=== PATIENT | female | born 1980 | race Caucasian/White ===

== ENCOUNTER 2017-04-30 17:44 | Emergency (ER) | payer MEDICAID ==
[~2017-04-30] VITALS: Ht 157.5 cm; Wt 87.5 kg
[2017-04-30 18:41] VITALS: BP 151/91
--- NOTE | 2017-04-30 21:12 | NUR ---
PT TAKEN TO OF
--- NOTE | 2017-04-30 21:16 | NUR ---
36Y F PT PRESENTS TO ER W/C/O LEFT KNEE PAIN X2 WEEKS. PT DENIES ANY MEDICAL HX OR TRAUMA TO THE AREA. . PT DENIES N/V/D; SKIN IS PINK/WARM/DRY; AAOX4 WITH EVEN AND STEADY GAIT; LUNGS CLEAR BL; HR EVEN AND REGULAR; PT DENIES ANY FEVER, CP, SOB, OR COUGH AT THIS TIME; PATIENT STATES PAIN OF 8/10 AT THIS TIME; VSS; PATIENT POSITIONED FOR COMFORT; HOB ELEVATED; BEDRAILS UP X2; BED DOWN. ER MD MADE AWARE OF PT STATUS.
[2017-04-30] MEDS ORDERED: LIDOCAINE/PRILOCAINE 2.5% 30 GM TUBE TP ONE (21:22)
[2017-04-30] MEDS ORDERED: LIDOCAINE 1% ED 50 ML ONE (21:23)
--- NOTE | 2017-04-30 21:39 | NUR ---
Dr. Ceballos evaluating patient
[2017-04-30] MEDS ORDERED: IBUPROFEN 800 MG TAB PO ONE (21:45)
[2017-04-30 22:00] VITALS: BP 137/82
== END 2017-04-30 22:01 | disposition home or self-care (01) ==
LOC: MED 17:44
DX: S83.92XA Sprain of unspecified site of left knee, initial encounter (principal); X58.XXXA Exposure to other specified factors, initial encounter; Y93.89 Activity, other specified; Y92.89 Other specified places as the place of occurrence of the external cause; Y99.8 Other external cause status
CPT/HCPCS: 73562; 99284; J2001

== ENCOUNTER 2018-10-21 18:40 | Emergency (ER) | payer MEDICAID ==
[~2018-10-21] VITALS: Ht 157.5 cm; Wt 66.3 kg
[2018-10-21 18:51] VITALS: BP 151/100
--- NOTE | 2018-10-21 18:52 | NUR ---
PT AMBULATED TO ER BED 08
--- NOTE | 2018-10-21 18:59 | NUR ---
38.F BIB SELF C/O FACIAL RASH SINCE YESTERDAY WITH ITCHINESS; DENIES CP OR SOB. ALSO C/O COUGH X 4 DAYS; TOOK ROBITUSSIN FOR COUGHING. DENIES N/V/D. AAOX4 WITH EVEN AND STEADY GAIT; LUNGS CLEAR BL. PT DENIES ANY FEVER, CP, SOB, OR COUGH AT THIS TIME; PATIENT STATES PAIN OF 0/10 AT THIS TIME.PATIENT POSITIONED FOR COMFORT; HOB ELEVATED; BEDRAILS UP X2; BED DOWN. ER MD MADE AWARE OF PT STATUS.
--- NOTE | 2018-10-21 19:10 | NUR ---
Pt report given to ANETA LIGHT. Transfer of care at this time.
--- NOTE | 2018-10-21 19:21 | NUR ---
GOT REPORT NADEGE PIERCE. PT AAO X4, GCS 15, RESPIATIONS EVEN AND UNLABORED, BL LUNG CLEAR, AIRWAY INTACT. SKIN WARM/PINK/DRY, +PMSC. GENRELAIZED RASH NOTED. VSS, NO ACUTE DISTRESS AT THIS TIME. WILL CONTINUE TO MONITOR
--- NOTE | 2018-10-21 19:22 | NUR ---
Dr. Sanchez evaluating patient at bedside.
[2018-10-21 19:48] VITALS: BP 164/93
--- NOTE | 2018-10-21 19:48 | NUR ---
Patient discharged with v/s stable. Written and verbal after care instructions given and explained. Patient alert, oriented and verbalized understanding of instructions. Ambulatory with steady gait. All questions addressed prior to discharge. ID band removed. Patient advised to follow up with PMD. Rx of PREDNISONE 50 MG, BENEDRYL 25 MG given. Patient educated on indication of medication including possible reaction and side effects. Opportunity to ask questions provided and answered.
== END 2018-10-21 19:48 | disposition home or self-care (01) ==
LOC: MED 18:40
DX: R21 Rash and other nonspecific skin eruption (principal)
CPT/HCPCS: 99283

== ENCOUNTER 2023-04-05 17:15 | Inpatient (IN) | payer MEDICAID ==
[~2023-04-05] VITALS: Ht 157.5 cm; Wt 84.9 kg
[2023-04-05 17:23] VITALS: BP 214/103
[2023-04-05 17:47] LABS: BASOPHILS % (AUTO) 0.2 % (0.0-2.0); EOSINOPHILS # (AUTO) 0.2 K/uL (0-0.4); EOSINOPHILS % (AUTO) 1.3 % (0.0-4.0); HEMATOCRIT 36.8 % (36-48); HEMOGLOBIN 12.7 g/dL (12.0-16.0); LYMPHOCYTES # (AUTO) 2.7 K/uL (2.5-16.5); LYMPHOCYTES % (AUTO) 21.6 % (20.5-51.1); MEAN CORPUSCULAR HEMOGLOBIN 31 pg (27-31); MEAN CORPUSCULAR HGB CONC 35 g/dL (33-37); MEAN CORPUSCULAR VOLUME 88.8 fL (80-94); MONOCYTES # (AUTO) 0.9 K/uL (0.8-1.0); MONOCYTES % (AUTO) 7.3 % (1.7-9.3); NEUTROPHILS # (AUTO) 8.7 K/uL (1.8-7.7); NEUTROPHILS % (AUTO) 69.6 % (42.2-75.2); PLATELET COUNT (AUTO) 224 K/uL (140-450); RED BLOOD CELL COUNT(AUTO) 4.14 MIL/uL (4.20-5.40); RED CELL DISTRIBUTION WIDTH 13.3 % (11.6-13.7); WHITE BLOOD COUNT (AUTO) 12.5 K/uL (4.8-10.8)
[2023-04-05 18:01] LABS: PROTHROMBIN TIME 11.2 secs (10.8-13.4)
[2023-04-05 18:06] LABS: ALBUMIN 3.9 g/dL (3.4-5.0); ANION GAP 12.1 (8-16); ASPARTATE AMINOTRANSFERASE 19 U/L (15-37); CARBON DIOXIDE 25.8 mmol/L (21-32); CHLORIDE 102 mmol/L (98-107); CREATININE 0.8 mg/dL (0.6-1.3); GFR ARICAN-AMERICAN 101 mL/min (>90); GLUCOSE 104 mg/dL (74-106); SODIUM SERUM 137 mmol/L (136-145); TOTAL BILIRUBIN 0.6 mg/dL (0.0-1.0); UREA NITROGEN, BLOOD 9 mg/dL (7-18)
[2023-04-05 18:10] LABS: POTASSIUM 2.9 mmol/L (3.5-5.1)
[2023-04-05] MEDS ORDERED: NACL 0.9% 1,000 ML IV ONE (19:00)
[2023-04-05] MEDS ORDERED: KCL 20 MEQ IN 100 mL PREMIX 200 ML IV ONE (19:00)
[2023-04-05 19:25] LABS: APPEARANCE,URINE CLEAR (CLEAR); BILIRUBIN,URINE NEGATIVE (NEGATIVE); BLOOD, URINE 3+ (NEGATIVE); COLOR,URINE YELLOW (YELLOW); LEUKOCYTE ESTERASE ,URINE NEGATIVE (NEGATIVE); NITRITE, URINE NEGATIVE (NEGATIVE); UGLUCOSE NEGATIVE (NEGATIVE)
--- NOTE | 2023-04-05 19:30 | NUR ---
assumed care for pt. A&Ox1, pt is verbal but does not make sense. family is bedside, non ambulatory at the [facility]. awaiting admission
--- NOTE | 2023-04-05 19:33 | NUR ---
Pt failed swallow screen.
[2023-04-05 19:37] LABS: BARBITURATE, URINE NEGATIVE ng/ml (NEG <=200); BENZODIAZEPINE, URINE NEGATIVE ng/mL (NEG <=200); CANNABINOID, URINE NEGATIVE ng/mL (NEG <=50); COCAINE, URINE NEGATIVE ng/mL (NEG <=300); OPIATE, URINE NEGATIVE ng/mL (NEG <=2000); PHENCYCLIDINE SCREEN,URINE NEGATIVE ng/mL (NEG <=25)
--- NOTE | 2023-04-05 19:45 | NUR ---
pt care done and purewick applied. pt repostioned for comfort
--- NOTE | 2023-04-05 19:45 | NUR ---
pt was able to verbalize she did not feel right in est[place], after some time pt's speech progressivley became worse. pt understands commands and is able to point at things for assistance.
--- NOTE | 2023-04-05 21:35 | NUR ---
pt care done, pt repostioned for comfort
--- NOTE | 2023-04-05 22:40 | NUR ---
pt care done and repostioned for comfort. awaiting admission. son bedside
--- NOTE | 2023-04-05 22:40 | NUR ---
pt became uncontrollably crying and screaming. son bedside. IV was found bedside upon rounds.
[2023-04-05] MEDS: hydrALAZINE 20 MG/ML VIAL IVP PRN (23:04)
[2023-04-05] MEDS: LORazepam 2 MG/ML VIAL IVP PRN (23:15)
--- NOTE | 2023-04-06 02:18 | NUR ---
pt continuing to scream and yell while moving around in bed
--- NOTE | 2023-04-06 04:22 | NUR ---
pt had a period of agitation, appears that chucks were making pt uncomfortable. once removed pt was able to rest.
--- NOTE | 2023-04-06 04:23 | NUR ---
Mart silva in [facility] - 04/06/23 at 0425 by PATRICIA pt continuing to yell and scream, moving around in bed. awaiting admission
--- NOTE | 2023-04-06 06:06 | NUR ---
lab at bedside
[2023-04-06 06:41] LABS: BASOPHILS # (AUTO) 0.1 K/uL (0.00-0.22); BASOPHILS % (AUTO) 0.9 % (0.0-2.0); EOSINOPHILS # (AUTO) 0.1 K/uL (0-0.4); EOSINOPHILS % (AUTO) 0.6 % (0.0-4.0); HEMATOCRIT 34.7 % (36-48); HEMOGLOBIN 12.4 g/dL (12.0-16.0); LYMPHOCYTES # (AUTO) 1.4 K/uL (2.5-16.5); LYMPHOCYTES % (AUTO) 11.9 % (20.5-51.1); MEAN CORPUSCULAR HEMOGLOBIN 31 pg (27-31); MEAN CORPUSCULAR HGB CONC 36 g/dL (33-37); MEAN CORPUSCULAR VOLUME 86.7 fL (80-94); MONOCYTES # (AUTO) 0.7 K/uL (0.8-1.0); MONOCYTES % (AUTO) 6.1 % (1.7-9.3); NEUTROPHILS # (AUTO) 9.3 K/uL (1.8-7.7); NEUTROPHILS % (AUTO) 80.5 % (42.2-75.2); PLATELET COUNT (AUTO) 213 K/uL (140-450); RED BLOOD CELL COUNT(AUTO) 4.01 MIL/uL (4.20-5.40); RED CELL DISTRIBUTION WIDTH 13.5 % (11.6-13.7); WHITE BLOOD COUNT (AUTO) 11.6 K/uL (4.8-10.8)
[2023-04-06 06:57] LABS: ANION GAP 11.4 (8-16); CARBON DIOXIDE 24.8 mmol/L (21-32); CREATININE 0.6 mg/dL (0.6-1.3); POTASSIUM 3.2 mmol/L (3.5-5.1)
--- NOTE | 2023-04-06 07:05 | NUR ---
pt care done, pt repostioned for comfort. pt awaiting for admission.
[2023-04-06] MEDS: DEXT 5% /NACL 0.9% 1,000 ML IV SCH ×2 (08:00→16:00)
--- NOTE | 2023-04-06 08:10 | NUR ---
Patient will be admitted to care of DR SHERMAN. Admited to TELE. Will go to room 110A. Belongings list completed. Report to NADEGE BOWERS.
[2023-04-06 08:20] VITALS: BP 168/72
--- NOTE | 2023-04-06 08:40 | NUR ---
PATIENT'S BP 168/72, NOTIFIED MD IF WANTED PERMISSIVE HTN, PER MD OKAY TO GIVE HYDRALAZINE
[2023-04-06] MEDS: ATORVASTATIN 20 MG TAB PO SCH (09:00)
[2023-04-06] MEDS: ASPIRIN 81 MG TAB.CHEW PO SCH (09:00)
[2023-04-06 10:02] VITALS: BP 156/107
--- NOTE | 2023-04-06 10:23 | NUR ---
COMPLETED MRI CHECKLIST WITH SON MATTY [phone]
[2023-04-06] MEDS: hydrALAZINE 20 MG/ML VIAL IVP PRN (10:50)
--- NOTE | 2023-04-06 10:51 | NUR ---
PT. GIVEN MED CUP OF WATER UNABLE TO SWALLOW, NOT SAFE TO GIVE MEDICATIONS, MEDICAL STUDENT MADE AWARE WELL LOW POTASSIUM
--- NOTE | 2023-04-06 11:59 | NUR ---
DC PLANNING A 42 Y.O.FEMALE FEMALE PATIENT ADMITTED IN TELEMETRY UNIT FOR EVAL OF ACUTE ONSET OF CONFUSION WITH RIGHT FACIAL DROOP .PATIENT SPEAKS INCOHERENTLY AND NOT FOLLOWING COMMANDS.CT OF BRAIN SHOWS NO BLEED BUT WITH LATE/ACUTE EARLY SUBACUTE ISCHEMIC INFARCT INVOLVING LEFT POSTERIOR FRONTAL AND LEFT TEMPORAL LOBES.CT ANGIO NORMAL.CTA NECK NEGATIVE.NEURO FOLLOWING.FOR MRI AT [facility] RADIOLOGY DEPT.RESCUE WORKER TIME BY [facility] AT 12:15PM.FLOOR NURSE AND FAMILY INFORMED.DC PLAN - FOR TRANSFER TO HIGHER LEVEL OF CARE.[place] [facility].CM TO FOLLOW. Addendum: 04/06/23 at 1507 by BURT RANDOLPH CM DC PLANNING LATE ENTRY MESSAGE LEFT TO [facility] NEURO CLINICAL COORDINATOR REGARDING REQUEST FOR TRANSFER TO HIGHER LEVEL OF CARE. AWAITING RESPONSE.[facility] TO BE CALLED WELL FOR FOLLOW UP.PATIENT LEFT FOR [facility]. FOR MRI.PATIENT IS APHASIC AND WITH LEFT SIDED WEAKNESS.CM TO FOLLOW. Addendum: 04/07/23 at 1231 by BURT RANDOLPH CM DC PLANNING SPOKE WITH RM AT TRANSFER CENTER AT [facility] 04/06.[facility] ASKING FOR SPECIFIC REASON WHY PATIENT NEEDS HIGHER LEVEL OF CARE .PATIENT ALREADY PASSED THE STROKE WINDOW.MRI RESULT SHOWS LARGE AORTIC INFARCT WITH LEFT MCA DISTRIBUTION AND LEFT PARIETAL T1 SIGNAL.ABNORMALITIES.FOR PT,OT, ST. AND SWALLOWING EVAL.CM TO FOLLOW. Addendum: 04/08/23 at 1230 by BURT RANDOLPH CM DC PLANNING PT,SWALLOWING EVAL DONE .PT RECOMMENDING SNF.PATIENT ON PUREE DIET.STILL APHASIC AND WITH RIGHT SIDED WEAKNESS.PATIENT NEEDS FELTMAKER REHAB.CLINICALS FAXED TO [facility] WILL UPDATE FAMILY OF PLAN.CM TO FOLLOW.. Addendum: 04/09/23 at 1043 by BURT RANDOLPH CM DC PLANNING HEALTHCARE ADMINISTRATION INTERN WAS CALLED THIS AM AND PATIENT WAS TRANSFERRED TO ICU AFTER CT OF THE BRAIN WAS DONE.CODED IN ICU AND WAS INTUBATED.SPOKE WITH SILKE AT [facility] AND UPDATED OF PATIENT'S STATUS.UNABLE TO ACCEPT PATIENT EVEN BEFORE THE CODE.PATIENT NEEDS LOWER LEVEL OF CARE AND CANNOT TOLERATE 3 HOUR DAILY INTENSIVE REHAB. CM TO FOLLOW. Addendum: 04/09/23 at 1417 by BURT RANDOLPH CM DC PLANNING -LATE ENTRY HIGHER LEVEL OF CARE REQUESTED BY .CLINICALS FAXED TO [facility], [facility] ACCEPTED THE PATIENT PENDING LETTER OF AGREEMENT.SPOKE WITH YANNICK AT [facility]HOUSE SUP TO FOLLOW AFTER 4;30PM.CM TO FOLLOW. Addendum: 04/09/23 at 1525 by BURT RANDOLPH CM LATE ENTRY LETTER OF AGREEMENT FAXED TO TRANSFER CENTER AT [facility] C/O YANNICK GARCIA RN.SPOKE TO AND SON MATTY AND UPDATE FOR TRANSFER DISCUSSED. Addendum: 04/09/23 at 1552 by BURT RANDOLPH CM LATE ENTRY REQUEST FOR HIGHER LEVEL OF CARE CANCELLED BY .[facility] NOTIFIED.PATIENT WILL NOT BENEFIT FROM SURGICAL INTERVENTION PER .FOR POSSIBLE TRACH AND PEG PLACEMENT PER NEURO .SOY TO FOLLOW.
[2023-04-06 12:00] VITALS: BP 153/86
[2023-04-06] MEDS ORDERED: POTASSIUM CHL 10 MEQ/D5-1/2NS 1,000 ML IV SCH (12:00)
[2023-04-06] MEDS ORDERED: KCL 20 MEQ IN 100 mL PREMIX 100 ML IV SCH (12:35)
--- NOTE | 2023-04-06 12:39 | NUR ---
DC PLANNING ASSESSMENT COMPLETE PLEASE REFER TO ASSESSMENT FOR ADDITIONAL DETAILS PT CURRENTLY HAS AN ORDER TO BE TRANSFERRED TO [facility] FOR MRI OF THE BRAIN WITHOUT CONTRAST. PT ALSO HAS AN ORDER FOR HLOC, CM CURRENTLY WORKING ON IDENTIFYING HLOC PLACEMENT, FAMILY AWARE. Addendum: 04/06/23 at 1242 by Thomas Zaidi SS Amended: Links added.
[2023-04-06] MEDS ORDERED: MORPHINE SULFATE 4 MG/ML SYR ONE (13:16)
[2023-04-06] MEDS: MORPHINE SULFATE 4 MG/ML SYR IVP SCH ×2 (13:18→14:45)
--- NOTE | 2023-04-06 13:34 | NUR ---
PT. SCREAMING IN PAIN UNABLE TO IDENTIFY SOURCE, RECEIVED ORDERS FROM MD STATES TO GIVE 4MG OF MORPHINE X1 AND 3MG PRN Q6H AFTER. ADMINISTERED 4MG OF MORPHINE, PT. NOTED TO HAVE INGROWN TOENAIL TO RT. GREAT TOE, TOE IS RED AND SWOLLEN MEDICAL STUDENT AT BEDSIDE MADE AWARE. PT. PICKED UP BY ANNELIESE TO GO TO [place] FOR MRI
--- NOTE | 2023-04-06 14:23 | NUR ---
PATIENT HAS BEEN SCREENED AND CATEGORIZED MODERATE NUTRITION RISK. PATIENT WILL BE SEEN WITHIN 3-5 DAYS OF ADMISSION. REVIEWED BY SYDNI HERNANDEZ RD
--- NOTE | 2023-04-06 15:16 | NUR ---
PT. ARRIVED BACK FROM MRI IN STABLE CONDITION, CURRENTLY RESTING
[2023-04-06 16:00] VITALS: BP 144/79
[2023-04-06] MEDS: MORPHINE SULFATE 2 MG/ML SYR IVP PRN (16:59)
[2023-04-06 20:00] VITALS: BP 144/87
--- NOTE | 2023-04-06 20:00 | NUR ---
PM NURSING NARRATIVE (OPENING) HAND-OFF REPORT RECEIVED FROM ROBINSON LIGHT WITH BEDSIDE ROUNDS AND INTRODUCTION OF PM NURSE @192. PT RECEIVED AWAKE IN BED WATCHING TV. DX: AFIB WITH RVR/PNEUMONIA. REPORTED HEART RATE 100-120'S WITH DIGOXIN IVP GIVEN AND HEART RATE LOWERED IN THE 90'S. BILATERAL LOWER EXTREMITIES 1+ EDEMA. LASIX GIVEN. PT STEADY AND AMBULATORY FOR BRP. NS @60ML/HR. TO RFA. SITE BENIGN. PRESENTLY ON ROOM AIR. NO SOB. PT STATED "...GOING HOME TOMORROW." CONTINUE TO MONITOR FOR CHANGES, MEDS ORDERED AND COMFORT MEASURES. BED IN LOWEST POSTION WITH WHEELS LOCKED. Addendum: 04/07/23 at 0932 by Agency Nurse 20, RN RN WRONG CHART. DISREGARD ENTIRE ENTRY.
--- NOTE | 2023-04-06 20:00 | NUR ---
PM NURSING NARRATIVE (OPENING) HAND-OFF REPORT RECEIVED FROM ROBINSON LIGHT WITH BEDSIDE ROUNDS AND INTRODUCTION OF NEW NURSE @ 1915. DX ISCHEMIC STROKE. MOVES RIGHT SIDE. PT RECEIVED AWAKE, APHASIC, TRACKING, LEFT ARM AND LEFT LEG LIMP WITHOUT MOVEMENT. ABLE TO TURN READILY TOWARD LEFT SIDE (DOOR). NEEDS ASSIST TURNING TOWARD RIGHT SIDE (WINDOWS). PUREWICK TO WALL SUCTION, TEZ URINE SLIGHTLY CLOUDY. PT ON MENSES. RIGHT GREAT TOE EDEMATOUS AND RED WITH TOE NAIL DISFIGURED. NO DRAINAGE. CT OF NECK, CT OF HEAD NEGATIVE. EEG NSR. MRI @ [facility] COMPLETED. UDS POSITIVE FOR METH (POSSIBLE DIET PILLS OF ETHIOPIAN ORIGIN. FAMILY NOT AT BEDSIDE PRESENTLY. CONT.PT UNABLE TO SWALLOW MEDS ON PRIOR SHIFT. AWARE. PT NPO. D5N2 TO LEFT HAND VIA 22GA @ 125ML/HR. MONITOR FOR CHANGES. KEEP CLEAN/COMFORT MEASURES. BED ALARM ON. NO MOANING NOTED. Addendum: 04/07/23 at 6627 by Agency Nurse 20, RN RN CORRECTION: RIGHT LEG AND RIGHT ARM LIMP. MOVES LEFT ARM AND LEG AT WILL.
[2023-04-07] VITALS: BP 142/78
--- NOTE | 2023-04-07 | NUR ---
RIGHT FOOT ELEVATED ON PILLOW. RIGHT GREAT TOE CONTINUES EDEMATOUS AND RED. ABLE TO MOVED RIGHT UPPER AND LOWER EXTREMITIES. Addendum: 04/07/23 at 0930 by Agency Nurse 20, NADEGE RN CORRECTION: "UNABLE" TO MOVE RIGHT UPPER AND LOWER EXTREMITIES.
--- NOTE | 2023-04-07 | NUR ---
DENIES PAIN OR RESPIRATORY DISTRESS. UP TO BATHROOM. VOIDING QS. Addendum: 04/07/23 at 0934 by Agency Nurse 20NADEGE RN WRONG CHART: DISREGARD ENTRY.
[2023-04-07] MEDS: DEXT 5% /NACL 0.9% 1,000 ML IV SCH ×4 (00:15→23:40)
--- NOTE | 2023-04-07 03:30 | NUR ---
IV DISLODGED WITH PT THRASHING LEFT ARM ABOUT, MOANING AND YELLING. APPEARS IN PAIN. NEW 22 GA RESTARTED IN LEFT HAND NEAR SAME SITE. ONE STICK. FLUIDS RESUMED AND MORPHINE 3MG IVP GIVEN.
[2023-04-07 04:00] VITALS: BP 139/80
--- NOTE | 2023-04-07 04:21 | NUR ---
PT RESTING QUIETLY. MORPHINE 3MG EFFECTIVE.
[2023-04-07 06:41] LABS: BASOPHILS % (AUTO) 0.2 % (0.0-2.0); EOSINOPHILS # (AUTO) 0.1 K/uL (0-0.4); EOSINOPHILS % (AUTO) 0.7 % (0.0-4.0); HEMOGLOBIN 12.7 g/dL (12.0-16.0); LYMPHOCYTES # (AUTO) 1.6 K/uL (2.5-16.5); LYMPHOCYTES % (AUTO) 13.3 % (20.5-51.1); MEAN CORPUSCULAR HEMOGLOBIN 31 pg (27-31); MEAN CORPUSCULAR HGB CONC 34 g/dL (33-37); MEAN CORPUSCULAR VOLUME 89.3 fL (80-94); MONOCYTES # (AUTO) 0.8 K/uL (0.8-1.0); MONOCYTES % (AUTO) 6.5 % (1.7-9.3); NEUTROPHILS # (AUTO) 9.8 K/uL (1.8-7.7); NEUTROPHILS % (AUTO) 79.3 % (42.2-75.2); PLATELET COUNT (AUTO) 224 K/uL (140-450); RED BLOOD CELL COUNT(AUTO) 4.15 MIL/uL (4.20-5.40); RED CELL DISTRIBUTION WIDTH 13.3 % (11.6-13.7); WHITE BLOOD COUNT (AUTO) 12.3 K/uL (4.8-10.8)
--- NOTE | 2023-04-07 07:25 | NUR ---
RECEIVED REPORT FROM REFERRAL NURSE NURSE, EVENS, FOR CONTINUITY OF CARE. PT IN BED YELLING AT THIS TIME. PER EVENS, PT IS IN PAIN AND SHE WILL MEDICATE. PT BP AT THIS TIME IS 165/97. EVENS AWARE. PT RESPIRATIONS ARE EVEN AND UNLABORED ON ROOM AIR. NO SIGNS OF DISTRESS NOTED. PT IS ON CARDIAC MONITORING AT THIS TIME, SR. ABD IS NONTENDER, NONDISTENDED WITH BOWEL SOUNDS NOTED. PT HAS R SIDED WEAKNESS. AND SWELLING, PAIN, AND TENDERNESS TO R GREAT TOE. PT UTILIZING PURE WICK AT THIS TIME. PT IS BED BOUND. PT HAS IV TO L HAND 22G. PT IS NPO AT THIS TIME PER MD ORDER. CALL LIGHT WITHIN REACH. ALL SAFETY MEASURES IN PLACE.
[2023-04-07] MEDS: MORPHINE SULFATE 2 MG/ML SYR IVP PRN ×2 (07:42→08:08)
--- NOTE | 2023-04-07 07:42 | NUR ---
PM NURSING NARRATIVE (CLOSING) HAND-OFF REPORT TO ONCOMING NURSE. REPORTED ISCHEMIC STROKE/PNEUMONIA WITH R HEMIPLEGIA. APHASIC AND UNABLE TO SWALLOW ANYTHING. DAY SHIFT REPORT MD MADE AWARE. D5NS @ 125/H. IV RESTARTED TO L HAND AFTER BEING DISLODGED WITH THRASHING OF LEFT SIDE WHEN IN APPARENT PAIN. MEDICATED X2 WITH MORPHINE 3MG IVP.WITH 1 MG WASTED EACH TIME. PUREWICK TO WALL SUCTION PRESENTLY GOOD SUCTION. NOT WORKING FIRST HALF OF PM SHIFT. PT ABLE TO TURN WELL WITH MINIMAL ASSIST OF 1. NO MOVEMENT OBSERVED ON RIGHT UPPER OR LOWER. PT DOES DEMONSTRATE UNDERSTANDING OF COMMANDS/PROMPTS TO TURN ETC. RELINQUISHED CARE OF PT AT THIS TIME.
[2023-04-07 08:00] VITALS: BP 165/97
[2023-04-07] MEDS: ASPIRIN 81 MG TAB.CHEW PO SCH (08:36)
[2023-04-07] MEDS: ATORVASTATIN 20 MG TAB PO SCH (08:36)
--- NOTE | 2023-04-07 08:41 | NUR ---
PT IS NPO. UNABLE TO ADMINISTER AM PO MEDS. DR NUÑEZ AT BEDSIDE, DR NUÑEZ MADE AWARE. DR NUÑEZ ALSO PLACED ORDER FOR X RAY OF R GREAT TOE.
--- NOTE | 2023-04-07 08:42 | NUR ---
DR NUÑEZ MADE AWARE OF ELEVATED BP, PER DR NUÑEZ, NO INTERVENTIONS AT THIS TIME DUE TO PT PERFUSION LEVEL. CONTINUE TO MONITOR.
[2023-04-07 09:55] LABS: ANION GAP 11.6 (8-16); CARBON DIOXIDE 22.9 mmol/L (21-32); CREATININE 0.6 mg/dL (0.6-1.3); POTASSIUM 3.5 mmol/L (3.5-5.1)
--- NOTE | 2023-04-07 10:12 | NUR ---
PT HAD SMALL EPISODE OF AGITATION AND GROANING. FAMILY AT BEDSIDE. FAMILY ASKING PT "WHAT'S WRONG YOU NEED TO TELL US". PT BECOMING MORE AGITATED. ASKED FAMILY TO GIVE PT SOME SPACE AND STEP OUT FOR A NEW MINUTES WHILE STAFF REPOSITIONS PT. FAMILY STATES THEY WILL RETURN AT LATER TIME WHEN PT IS "MORE CALM".
--- NOTE | 2023-04-07 11:22 | NUR ---
PT NIECE AT BEDSIDE, ASKING FOR UPDATE. GAVE UPDATE. NIECE ASKING ABOUT PT R GREAT TOE. INFORMED HER THAT X RAY HAS BEEN ORDERED. ASKED NIECE HOW PT RECEIVED INJURY TO R GREAT TOE. PER NIECE "SHE IS ALWAYS WALKING AROUND THE HOUSE IN SOCKS WITH NO SHOES ON. WE DON'T KNOW IF SOMEONE STEPPED ON HER TOE OR WHEN IT HAPPENED. WE THINK IT HAS BEEN LIKE THIS FOR A LITTLE WHILE. SHE DOESN'T TAKE GOOD CARE OF HERSELF AND NEVER TELLS US ANYTHING".
[2023-04-07 12:00] VITALS: BP 153/95
[2023-04-07] MEDS: LORazepam 2 MG/ML VIAL IVP PRN ×2 (13:19→21:07)
--- NOTE | 2023-04-07 13:30 | NUR ---
PT GRIMMACING, YELLING OUT/GROANING. PT GRABBING AT L HIP, ATTEMPTING TO PULL HERSELF OVER TO LAY ON R SIDE. DR NUÑEZ MADE AWARE. NEW ORDERS PLACED.
[2023-04-07] MEDS ORDERED: MORPHINE SULFATE 4 MG/ML SYR IVP PRN (13:35)
--- NOTE | 2023-04-07 15:36 | NUR ---
ENDORSED PT TO DAY SHIFT NURSE, MARIANO, FOR CONTINUITY OF CARE. PT IS STABLE.
[2023-04-07 16:00] VITALS: BP 141/89
--- NOTE | 2023-04-07 18:32 | NUR ---
ST EVALUATION DONE AND PATIENT IS OKAY TO EAT PUREE TEXTURE NECTAR-THICK LIQUID DIET. PATIENT ATE ABOUT 40 % OF HER DINNER
--- NOTE | 2023-04-07 19:01 | NUR ---
ENDORSE PATIENT TO PM SHIFT NURSE WHILE FAMILY MEMBER AT BEDSIDE. PATIENT SLEEPING, PUREWICK CONNECT TO WALL SUCTION, IV D5NS INFUSING AT 125ML/HR VIA L. HAND PIV SITE
--- NOTE | 2023-04-07 19:05 | NUR ---
RECEIVED PT IN BED ASLEEP, OPENS EYES UPON VERBAL STIMULI. SON AT THE BEDSIDE. NO S/SX OF PAIN NOR DISCOMFORT. NO ACUTE RESPIRATORY DISTRESS NOTED. RIGHT SIDED WEAKNESS NOTED. SKIN WARM AND DRY TO TOUCH. BED IN THE LOWEST AND LOCKED POSITION FOR SAFETY, CALL LIGHT IN REACH.
[2023-04-07 20:00] VITALS: BP 170/93
[2023-04-07] MEDS: hydrALAZINE 20 MG/ML VIAL IVP PRN (20:19)
--- NOTE | 2023-04-07 21:07 | NUR ---
PT IS RESTLESS AND SCREAMING. MEDICATED ORDERED.
--- NOTE | 2023-04-07 21:52 | NUR ---
PATIENT NOW CALM AND ASLEEP. NO DISTRESS NOTED. CALL LIGHT IN REACH.
[2023-04-08] VITALS: BP 134/85
--- NOTE | 2023-04-08 00:15 | NUR ---
PATIENT SCREAMING, RESTLESS, IRRITABLE, FACIAL GRIMACING NOTED, MEDICATED WITH MORPHINE ORDERED. PULLED UP AND POSITIONED FOR COMFORT.
--- NOTE | 2023-04-08 01:21 | NUR ---
PATIENT NOW CALM AND ASLEEP. NO S/SX OF PAIN NOR DISCOMFORT. HEAD OF THE BED ELEVATED, BED ALARM ON.
[2023-04-08 04:00] VITALS: BP 156/89
--- NOTE | 2023-04-08 04:36 | NUR ---
AM CARE RENDERED. MADE COMFORTABLE IN BED.
--- NOTE | 2023-04-08 06:26 | NUR ---
PATIENT IS ASLEEP. NO DISTRESS NOTED. ALL NEEDS ATTENDED TO. SAFETY PRECAUTION MAINTAINED DURING THE SHIFT, CALL LIGHT REMAINS WITHIN REACH.
[2023-04-08] MEDS: hydrALAZINE 20 MG/ML VIAL IVP PRN ×2 (06:35→22:40)
[2023-04-08 06:40] LABS: BASOPHILS % (AUTO) 0.1 % (0.0-2.0); EOSINOPHILS % (AUTO) 0.1 % (0.0-4.0); HEMATOCRIT 38.4 % (36-48); HEMOGLOBIN 13.3 g/dL (12.0-16.0); LYMPHOCYTES # (AUTO) 0.9 K/uL (2.5-16.5); LYMPHOCYTES % (AUTO) 6.3 % (20.5-51.1); MEAN CORPUSCULAR HEMOGLOBIN 31 pg (27-31); MEAN CORPUSCULAR HGB CONC 35 g/dL (33-37); MONOCYTES # (AUTO) 0.6 K/uL (0.8-1.0); MONOCYTES % (AUTO) 3.9 % (1.7-9.3); NEUTROPHILS # (AUTO) 13.4 K/uL (1.8-7.7); NEUTROPHILS % (AUTO) 89.6 % (42.2-75.2); PLATELET COUNT (AUTO) 202 K/uL (140-450); RED BLOOD CELL COUNT(AUTO) 4.32 MIL/uL (4.20-5.40); RED CELL DISTRIBUTION WIDTH 13.1 % (11.6-13.7)
[2023-04-08 06:59] LABS: ANION GAP 14.3 (8-16); CARBON DIOXIDE 24.8 mmol/L (21-32); CREATININE 0.4 mg/dL (0.6-1.3); POTASSIUM 3.1 mmol/L (3.5-5.1)
--- NOTE | 2023-04-08 07:00 | NUR ---
RECEIVED REPORT FROM NIGHTSHIFT NURSE. PT IS ASLEEP IN BED, WOKE TO NAME/TOUCH. PT IS NONVERBAL, BUT OPENS EYES AND TURNS HEAD TOWARD WHOEVER IS TALKING. PT'S RIGHT SIDE IS TWITCHING/RIGID. CHARGE NURSE AND MD INFORMED. WAITING FOR TRANSFER TO HIGHER LEVEL OF CARE.
[2023-04-08 08:00] VITALS: BP 165/95
[2023-04-08] MEDS: DEXT 5% /NACL 0.9% 1,000 ML IV SCH ×2 (08:02→16:09)
[2023-04-08] MEDS: ATORVASTATIN 20 MG TAB PO SCH (10:02)
[2023-04-08] MEDS: ASPIRIN 81 MG TAB.CHEW PO SCH (10:02)
[2023-04-08] MEDS: lisinopriL 20 MG TAB PO SCH (10:02)
[2023-04-08 12:00] VITALS: BP 133/82
--- NOTE | 2023-04-08 13:36 | NUR ---
04/08/23 RD INITIAL ASSESSMENT COMPLETED PLEASE REFER TO NUTRITION ASSESSMENT UNDER CARE ACTIVITY FOR ESTIMATED NUTRITIONAL NEEDS. 1. RECOMMEND ADDING CARDIAC, ENSURE 1/DAY TO PUREE, NECTAR THICK DIET TOLERATED -ENSURE PROVIDES 350KCAL, 20G PROTEIN DAILY. 2. MONITOR GI, PO INTAKE, NUTRITION RELATED LAB VALUES. 3. RD TO FOLLOW-UP 3-5 DAYS, MODERATE RISK REVIEWED BY SYDNI HERNANDEZ RD
--- NOTE | 2023-04-08 14:10 | NUR ---
PT. WITH LOW DEVIN SCALE AT HIGH RISK, CONTINUE TO FOLLOW PRESSURE INJURY PREVENTION INTERVENTIONS. -POSITIONING: TURN AND REPOSITION PATIENT Q 2H OR SOONER USE PILLOWS TO KEEP BONY PROMINENCES FROM DIRECT CONTACT WITH SURFACES USE REPOSITIONING WEDGES TO PROVIDE 30-DEGREE ANGLE FOR SIDE LYING POSITIONS OFFLOADING OR FOAM DRESSING TO ALL TUBING TO PREVENT MEDICAL DEVICES RELATED PRESSURE INJURY -RE-EVALUATING AND MANAGING INCONTINENCE MONITOR SKIN CONDITION DURING POSITION CHANGE DO NOT MASSAGE REDNESS, BONY PROMINENCES FREQUENT RD-CARE AND PROVIDE BARRIER CREAMS PRN IF SOILING MOISTURE CONTROL BY OFFER BED RIZO/URINAL /ABSORBENT PAD TO WICK AND HOLD MOISTURE KEEP SKIN DRY AND PROTECT FROM FRICTION -MANAGE FRICTION/SHEAR/MOBILITY KEEP HOB AT THE LOWEST LEVEL OF ELEVATION NO MORE THAN 30 DEGREE UNLESS OTHERWISE CONTRAINDICATED USE LIFT SHEET OR TRANSFER DEVICE TO MOVE PATIENT AND PREVENT LATERAL SHEER. PROTECT HEELS, ELBOWS BONY PROMINENCES WITH SKIN BERRIES OR FOAM DRESSING IF EXPOSED TO FRICTION OFFLOAD BILATERAL HEELS BY PLACING PILLOWS UNDER CALVES AT ALL TIMES, UNLESS OTHERWISE CONTRAINDICATED -PRESSURE REDISTRIBUTION SURFACE THERAPY EMIGDIO ISOFLEX MATTRESS -NUTRITION: PLEASE FOLLOW RD RECOMMENDATIONS AND OFFER NUTRITION SUPPLEMENTS IF ORDERED. PLEASE CONTACT WOUND CARE NURSE FOR ANY QUESTION AND CHANGE OF WOUND CONDITION.
[2023-04-08 16:00] VITALS: BP 159/95
--- NOTE | 2023-04-08 19:00 | NUR ---
ENDORSED PT TO NIGHTSHIFT NURSE FOR CONTINUITY OF CARE. INFORMED MD OF LOW POTASSIUM, NO PRN POTASSIUM IN PT ORDERS. ENDORSED TO NIGHTSHIFT NURSE. NO FURTHER NEEDS ARE TO BE MET AT THIS TIME. PT STABLE, ASLEEP IN BED, WOKE TO NAME/TOUCH. STILL NONVERBAL. FAMILY AT BEDSIDE.
--- NOTE | 2023-04-08 19:30 | NUR ---
RECEIVED REPORT FROM DAY SHIFT RN FOR CONTINUITY OF CARE. PT IS CURRENTLY RESTING IN BED. NOT IN ANY DISTRESS. ON RA SATING 96%. FAMILY BY BEDSIDE. FAMILY HAD QUESTIONS ABOUT THE FAMILY AND WAS ALL ANSWERED. POC OF CARE DISCUSSED. SAFETY MEASURES TAKEN. WILL CONTINUE TO MONITOR THE PT.
[2023-04-08 20:00] VITALS: BP 179/97
[2023-04-09] VITALS (28 sets, daily range): BP systolic 50–173; BP diastolic 37–90
--- NOTE | 2023-04-09 00:11 | NUR ---
PT IS SLEEPING COMFORTABLY IN BED. PT NOT IN ANY RESPIRATORY DISTRESS. BREATHING EVEN AND UNLABORED. WILL CONTINUE TO MONITOR THE PT.
[2023-04-09] MEDS: KCL 20 MEQ IN 100 mL PREMIX 200 ML IV PRN (00:19)
--- NOTE | 2023-04-09 05:45 | NUR ---
PT WAS CLEANED AND CHANGED. TOLERATED IT WELL. PT NOT IN ANY DISTRESS. WILL CONTINUE TO MONITOR THE PT.
[2023-04-09 06:50] LABS: BASOPHILS % (AUTO) 0.1 % (0.0-2.0); HEMATOCRIT 38.2 % (36-48); HEMOGLOBIN 13.3 g/dL (12.0-16.0); LYMPHOCYTES # (AUTO) 0.9 K/uL (2.5-16.5); LYMPHOCYTES % (AUTO) 5.1 % (20.5-51.1); MEAN CORPUSCULAR HEMOGLOBIN 31 pg (27-31); MEAN CORPUSCULAR HGB CONC 35 g/dL (33-37); MEAN CORPUSCULAR VOLUME 88.1 fL (80-94); MONOCYTES # (AUTO) 0.9 K/uL (0.8-1.0); MONOCYTES % (AUTO) 4.8 % (1.7-9.3); NEUTROPHILS # (AUTO) 15.9 K/uL (1.8-7.7); PLATELET COUNT (AUTO) 198 K/uL (140-450); RED BLOOD CELL COUNT(AUTO) 4.34 MIL/uL (4.20-5.40); RED CELL DISTRIBUTION WIDTH 13.3 % (11.6-13.7); WHITE BLOOD COUNT (AUTO) 17.7 K/uL (4.8-10.8)
[2023-04-09 06:58] LABS: ANION GAP 14.8 (8-16); CREATININE 0.7 mg/dL (0.6-1.3)
--- NOTE | 2023-04-09 07:09 | NUR ---
ENDORSED PT TO DAY SHIFT RN FOR CONTINUITY OF CARE. PT IS STABLE.
[2023-04-09 07:17] LABS: POTASSIUM 2.8 mmol/L (3.5-5.1)
[2023-04-09] MEDS: DEXT 5% /NACL 0.9% 1,000 ML IV SCH ×3 (08:00→16:00)
--- NOTE | 2023-04-09 08:00 | NUR ---
0800 Received lethargic, opens eyes, unable to verbalize. Patient grabs on her tele wires and gets restless. Neuro checks done, pupils reactive to light, responds well to shruthi stimuli at this time, patient.s left arm with some resistance right arm appears cotracted. Right lower extremity stiff, left lower extremity flexed.
[2023-04-09] MEDS: ASPIRIN 81 MG TAB.CHEW PO SCH (09:00)
--- NOTE | 2023-04-09 09:00 | NUR ---
Patient re assessed, with mucus noted on her mouth 02 sat 97% on R/A 97%. Patient more lethargic slow to respond, closely monitored. Patient not given breakfast and po medicines held at this time.
--- NOTE | 2023-04-09 10:12 | NUR ---
REPORT RECEIVED FROM MILLY RN AT 1010, ALL CARES ASSUMED. PT TRANSFERRED FROM 107A AFTER [facility] RESPONSE WAS CALLED. PT CAME TO ICU AFTER CT PER ER PHYSICIAN. PT CODED UPON ARRIVAL FOR APPROXIMATELY 10 MINUTES AND WAS INTUBATED AT 1001.
[2023-04-09] MEDS ORDERED: NOREPINEPHRINE 4 MG/4 ML VIAL IV ONE (10:18)
[2023-04-09] MEDS ORDERED: NOREPINEPHRINE 4 MG in DEXTROSE 5% 250 ML IV PRN (10:20)
[2023-04-09] MEDS ORDERED: PROPOFOL 1000 MG/100 ML PREMIX 100 ML IV PRN (10:30)
--- NOTE | 2023-04-09 10:30 | NUR ---
905 CALLED TO PATIENT ROOM FOR PT BEING FOUND IN DISTRESS. ARRIVED TO FIND ON ROOM AIR AND NOT BEING ABLE TO BE STIMULATED. PATIENT HR ELEVATED AND SATURATION AT 90%. PLACED PATIENT ON NONREBREATHER. SATURATION INCREASED TO 100% BUT PATIENT WAS STILL UNABLE TO BE STIMULATED. RN SUSPECTED PATIENT WAS HAVING SEIZURE. PATIENT WAS BROUGHT TO CT ON 2L NC. AFTER CT AND XRAY WAS TAKEN, PATIENT WAS TAKEN TO ICU FOR MONITORING. AFTER SWITCHING TO ICU BED, PATIENT BECAME APNEIC AND FACIAL SKIN COLOR BECAME BLUE. 09 DIANNA CHERRY WAS CALLED, COMPRESSIONS WERE STARTED AND ER DOCTOR CAME TO BEDSIDE. PATIENT INTUBATED AT 1005 WITH ETT 7.5 AND SECURED AT 21cm @TEETH WITH TUBE POON WITH BITE BLOCK. POSITIVE COLOR CHANGE NOTED, BILATERAL BREATH SOUNDS HEARD BY MD, AND CHEST RISE AND FALL NOTED. 1010 PATIENT WAS PLACED ON VENTILATOR WITH SETTINGS AC/VC 450, RATE OF 20, +5 AND 100% FIO2. VENTILATOR PLUGGED INTO RED OUTLET. ALARMS ARE SET AND AUDIBLE WITHIN NORMAL LIMITS. AMBU BAG AT BEDSIDE. SPUTUM CULTURE AND ABG ARE ORDERED. WILL CONTINUE TO MONITOR PATIENT. Addendum: 04/09/23 at 1431 by VALENTE JIM RT CORRECTION/ADDENDUM: 905 CALLED TO PATIENT ROOM FOR PT BEING FOUND IN DISTRESS. ARRIVED TO FIND ON ROOM AIR AND NOT BEING ABLE TO BE STIMULATED. PATIENT HR ELEVATED AND SATURATION AT 90%. PLACED PATIENT ON NONREBREATHER. SATURATION INCREASED TO 100% BUT PATIENT WAS STILL UNABLE TO BE STIMULATED. RN SUSPECTED PATIENT WAS HAVING SEIZURE. PATIENT WAS BROUGHT TO CT ON 2L NC. AFTER CT AND XRAY WAS TAKEN, PATIENT WAS TAKEN TO ICU FOR MONITORING. NOTICED PATIENT SNORING BUT SATURATION WAS AT 98% UPON ARRIVAL TO ICU. FEW MINUTES LATER PATIENT BECAME APNEIC AND FACIAL SKIN COLOR BECAME BLUE. 0948 CODE BLUE WAS CALLED, COMPRESSIONS WERE STARTED AND ER DOCTOR CAME TO BEDSIDE. PATIENT INTUBATED AT 1005 WITH ETT 7.5 AND SECURED AT 21cm @TEETH WITH TUBE POON WITH BITE BLOCK. POSITIVE COLOR CHANGE NOTED, BILATERAL BREATH SOUNDS HEARD BY MD, AND CHEST RISE AND FALL NOTED. 1010 PATIENT WAS PLACED ON VENTILATOR WITH SETTINGS AC/VC 450, RATE OF 20, +5 AND 100% FIO2. VENTILATOR PLUGGED INTO RED OUTLET. ALARMS ARE SET AND AUDIBLE WITHIN NORMAL LIMITS. AMBU BAG AT BEDSIDE. SPUTUM CULTURE AND ABG ARE ORDERED. WILL CONTINUE TO MONITOR PATIENT.
--- NOTE | 2023-04-09 10:30 | NUR ---
PT PUPILS DILATED AND NONREACTIVE TO LIGHT. NO COUGH OR GAG REFLEX NOTED DURING ENDOTRACHEAL SUCTION. NOT REACTIVE TO PAINFUL STIMULI. DR SHERMAN NOTIFIED.
[2023-04-09] MEDS ORDERED: MAG SULF 2000 MG/WATER PREMIX 50 ML IV PRN (10:40)
[2023-04-09] MEDS ORDERED: POTASSIUM CHLORIDE 10 MEQ TABER PO PRN (10:40)
[2023-04-09] MEDS ORDERED: POTASSIUM CHLORIDE 40 MEQ, LIDOCAINE 1% 25 MG in NACL 0.9% 250 ML IV SCH (11:30)
--- NOTE | 2023-04-09 11:48 | NUR ---
PATIENT VENT SETTINGS CHANGED PER MD SHERMAN AFTER ABG.
--- NOTE | 2023-04-09 12:49 | NUR ---
P.T. NOTES HOLD P.T. TX. TRANSFERRED TO ICU, WILL AWAIT P.T. RE EVAL ORDER WHEN APPROPRIATE.
--- NOTE | 2023-04-09 13:20 | NUR ---
DR TORRES AT BEDSIDE UPDATING FAMILY ON PT CONDITION.
[2023-04-09] MEDS: ATORVASTATIN 20 MG TAB PO SCH (13:51)
--- NOTE | 2023-04-09 14:26 | NUR ---
0940 Patient non responsive, noted left arm decortication as her right arm, [id number] non responsive. RT at bedside, rapid response activated and [id number] managed. ER md at bedside. Patient to radiology department annd CXR done with CT of the head. Patient transfered to ICU via ACLS protocol report given to DAVID Acosta, alejandra Masters avtivated thereafter Naeem masters team at bedside
--- NOTE | 2023-04-09 14:55 | NUR ---
PHONE CALL WITH DR SHERMAN, SON MATTY AND NIECE SALOME. DR SHERMAN GAVE UPDATE ON PT STATUS, DISCUSSED CODE STATUS WITH FAMILY. PT TO REMAIN FULL CODE AT THIS TIME. FAMILY TO DISCUSS AND HAVE FURTHER DISCUSSION WITH PHYSICIANS TOMORROW.
[2023-04-09] MEDS: lisinopriL 20 MG TAB PO SCH (16:23)
--- NOTE | 2023-04-09 17:05 | NUR ---
HOMOEOPATH AT BEDSIDE.
--- NOTE | 2023-04-09 19:27 | NUR ---
REPORT GIVEN TO OSKAR LIGHT, ALL CARES ENDORSED.
--- NOTE | 2023-04-09 19:28 | NUR ---
REPORT RECEIVED FROM CELI LIGHT. PT IS STABLE
--- NOTE | 2023-04-09 23:00 | NUR ---
[facility] CALLED TO REPORT POSSIBLE BRAIN . [facility] WORKER'S NAME IS TERRIE AND REFERRAL NUMBER IS [id number]
[2023-04-10] VITALS (20 sets, daily range): BP systolic 0–133; BP diastolic 0–72
[2023-04-10 06:14] LABS: BASOPHILS # (AUTO) 0.1 K/uL (0.00-0.22); BASOPHILS % (AUTO) 0.3 % (0.0-2.0); EOSINOPHILS # (AUTO) 0.2 K/uL (0-0.4); EOSINOPHILS % (AUTO) 1.4 % (0.0-4.0); HEMATOCRIT 35.1 % (36-48); LYMPHOCYTES # (AUTO) 2.3 K/uL (2.5-16.5); LYMPHOCYTES % (AUTO) 14.2 % (20.5-51.1); MEAN CORPUSCULAR HEMOGLOBIN 31 pg (27-31); MEAN CORPUSCULAR HGB CONC 34 g/dL (33-37); MEAN CORPUSCULAR VOLUME 89.6 fL (80-94); MONOCYTES # (AUTO) 1.8 K/uL (0.8-1.0); MONOCYTES % (AUTO) 11.1 % (1.7-9.3); NEUTROPHILS # (AUTO) 11.8 K/uL (1.8-7.7); PLATELET COUNT (AUTO) 132 K/uL (140-450); RED BLOOD CELL COUNT(AUTO) 3.92 MIL/uL (4.20-5.40); RED CELL DISTRIBUTION WIDTH 13.5 % (11.6-13.7); WHITE BLOOD COUNT (AUTO) 16.1 K/uL (4.8-10.8)
--- NOTE | 2023-04-10 06:55 | NUR ---
PT REMAINED HEMODYNAMICALLY STABLE BUT REMAINS UNRESPONSIVE. NO URINE OUTPUT NOTED FOR SHIFT. FAMILY UPDATED ON CONDITION
--- NOTE | 2023-04-10 07:30 | NUR ---
RECIEVED REPORT FROM OSKAR LIGHT. PT IS INTUBATED CONNECTED TO VENT FIO2 30% IV FLUID HAS PICCLINE ON RT UPPER ARM INFUSING LEVOPHED AT 7MCG/KG/MIN, [facility]SON CATH HAS NO URINE OUT PUT.SKIN COOL TO TOUCH.
[2023-04-10 07:41] LABS: ANION GAP 12.9 (8-16); CARBON DIOXIDE 19.6 mmol/L (21-32); CREATININE 2.9 mg/dL (0.6-1.3)
[2023-04-10 07:45] LABS: POTASSIUM 2.5 mmol/L (3.5-5.1)
--- NOTE | 2023-04-10 08:00 | NUR ---
SEEN BY DR. ERIC AT BED SIDE , NO NEW ORDER RECEIVED.
--- NOTE | 2023-04-10 08:15 | NUR ---
SEEN BY HAVE MEETING WITH PT. FAMILY AT BEDSIDE REGARDING CODE STATUS Addendum: 04/10/23 at 1152 by Jose Alejandro Adam RN DR. MOLINA HAVE MEETING WITH THE FAMILY AT 1015AM.
[2023-04-10] MEDS: ASPIRIN 81 MG TAB.CHEW PO SCH (08:42)
[2023-04-10] MEDS: ATORVASTATIN 20 MG TAB PO SCH (08:42)
[2023-04-10] MEDS: KCL 20 MEQ IN 100 mL PREMIX 200 ML IV PRN (08:45)
--- NOTE | 2023-04-10 10:19 | NUR ---
AFTER HAVE MEETING WITH DR. MOLINA THE FAMILY WANTED TO CHANGE CODE STATUS TO DNR AND HAVE PATIENT EXTUBATED.
--- NOTE | 2023-04-10 10:25 | NUR ---
PATIENT EXTUBATED STOP ALL TREATMENT.
--- NOTE | 2023-04-10 10:25 | NUR ---
PATIENT EXTUBATED AND PLACED ON ROOM AIR PER MD MOLINA.
--- NOTE | 2023-04-10 10:40 | NUR ---
FAMILY [AT THE BED SIDE.
--- NOTE | 2023-04-10 10:57 | NUR ---
MONITOR SHOW STRAIGHT LINE,NOTIFIED HOUSE SUPP. HE CAME AND ZAID PT .
--- NOTE | 2023-04-10 11:17 | NUR ---
1057 AM , patient has no radial pulse, no carotid pulse, no breath sounds, no chest rise and fall, no heart beat upon auscultation, ECG is asystole. Patient pronounced at 1057 AM. Family at bedside and notified.
--- NOTE | 2023-04-10 11:30 | NUR ---
PHONE CALL TO [employer]PER[employer], SADIE, TO NOTIFY OF PT . #[phone].
--- NOTE | 2023-04-10 11:30 | NUR ---
CALLED CALLED [employer] MANAGER [phone].
--- NOTE | 2023-04-10 13:11 | NUR ---
TALKED TO [employer] GENERAL MANAGER'S OFFICECASE #[id number] HER NAME IS YANCI SHE IS [employer] MANAGER'S CASE.
--- NOTE | 2023-04-10 17:29 | NUR ---
[facility] B[facility] UP BY [facility] ,
== END 2023-04-10 17:45 | DRG 720 ==
LOC: MED 17:15 → MTU 19:26 → MIC 04-09 09:45
PROC: 0BH17EZ Insertion of Endotracheal Airway into Trachea, Via Natural or Artificial Opening (ICD-10-PCS; principal; 2023-04-09)
PROC: 5A1945Z Respiratory Ventilation, 24-96 Consecutive Hours (ICD-10-PCS; 2023-04-09)
PROC: 02HV33Z Insertion of Infusion Device into Superior Vena Cava, Percutaneous Approach (ICD-10-PCS; 2023-04-09)
PROC: B548ZZA Ultrasonography of Superior Vena Cava, Guidance (ICD-10-PCS; 2023-04-09)
PROC: 5A12012 Performance of Cardiac Output, Single, Manual (ICD-10-PCS; 2023-04-10)
PROC: 4A10X4Z Monitoring of Central Nervous Electrical Activity, External Approach (ICD-10-PCS; 2023-04-10)
DX: A41.9 Sepsis, unspecified organism (principal); I63.9 Cerebral infarction, unspecified; J69.0 Pneumonitis due to inhalation of food and vomit; J96.01 Acute respiratory failure with hypoxia; G81.91 Hemiplegia, unspecified affecting right dominant side; R47.01 Aphasia; R29.810 Facial weakness; R31.9 Hematuria, unspecified; E87.6 Hypokalemia; I10 Essential (primary) hypertension; R29.700 NIHSS score 0; F15.10 Other stimulant abuse, uncomplicated; L03.115 Cellulitis of right lower limb; M86.8X7 Other osteomyelitis, ankle and foot; E11.69 Type 2 diabetes mellitus with other specified complication; L60.0 Ingrowing nail; Z20.822 Contact with and (suspected) exposure to COVID-19; Z83.3 Family history of diabetes mellitus; Z82.5 Family history of asthma and other chronic lower respiratory diseases; I46.9 Cardiac arrest, cause unspecified
CPT/HCPCS: 36415; 36600; 70450; 71045; 73502; 73660; 80048; 80053; 80305; 81001; 82803; 82948; 84484; 85025; 85610; 85730; 86886; 86900; 86901; 87081; 89220; 92526; 94002; 94003; 96365; 97110; 97112; 97163-GP; 97530; 99291; J0360; J0696; J1644; J2001; J2060; J2270; J2704; J3480; J3490; J7030; J7060; Q0092; Q9967